=== PATIENT | female | born 1965 | race Two or more races ===

== ENCOUNTER 2021-01-20 14:23 | Outpatient (CLI) | payer OTHER ==
[2021-01-20 14:52] LABS: ANION GAP 7 mmol/L (5-15); BILIRUBIN,TOTAL 0.3 mg/dL (0.2-1.0); CALCIUM 8.5 mg/dL (8.5-10.1); CHLORIDE 107 mmol/L (98-107); CREATININE 0.91 mg/dL (0.55-1.02)
[2021-01-20 14:53] LABS: ALANINE AMINOTRANSFERASE 26 U/L (12-78); ALBUMIN 3.8 g/dL (3.4-5.0); ALKALINE PHOSPHATASE 135 U/L (45-117); TOTAL PROTEIN 8.2 g/dL (6.4-8.2)
== END 2021-01-20 23:59 | disposition home or self-care (01) ==
LOC: LAB 14:23
PROVIDERS: ATTEND Internal Medicine
DX: R74.8 Abnormal levels of other serum enzymes (principal)
CPT/HCPCS: 36415; 80053